=== PATIENT | male | born 1995 | race Hispanic/Latino ===

== ENCOUNTER 2025-10-02 22:17 | Emergency (ER) | payer BC, OTHER ==
[~2025-10-02] VITALS: Ht 167.6 cm; Wt 104.3 kg
[~2025-10-02 22:17] MED LIST: ACET-66 PO; CLIN-141 PO; DESM10SP4 NS; INSU100C14 SQ; INSU100V12 SQ; LEVO500T2 PO
--- NOTE | 2025-10-02 22:47 | EKG ---
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
[2025-10-02 23:00] LABS: IMMATURE GRANULOCYTE ABSOLUTE 0.08 K/uL (0-1); NUCLEATED RED BLOOD CELLS 0.0 % (0.0-0.19); PLATELET COUNT (AUTO) 451 K/uL (130-400); RED BLOOD CELL COUNT(AUTO) 4.19 MIL/uL (4.50-6.20); RED CELL DISTRIBUTION WIDTH 15.4 % (11.0-15.5); WHITE BLOOD COUNT (AUTO) 12.3 K/uL (4.8-10.8)
[2025-10-02 23:09] LABS: CREATININE 2.0 mg/dL (0.5-1.3); GLOMERULAR FILTR. RATE CALC 46.0 mL/min (>90); GLUCOSE,RANDOM 54.0 mg/dL (70-105); SODIUM SERUM 142.0 mmol/L (136-145); UREA NITROGEN, BLOOD 10.0 mg/dL (7-18)
[2025-10-02] MEDS: 0.9%NACL 1000ML 1,000 ML IV ONE (23:10)
[2025-10-02 23:22] LABS: ASPARTATE AMINOTRANSFERASE 34.0 U/L (10-37); TOTAL PROTEIN, SERUM 6.1 g/dL (6.0-8.3)
[2025-10-02] MEDS: DEXTROSE 50%-WATER 50 ML DISP.SYRIN IV ONE ×2 (23:30)
[2025-10-02 23:35] LABS: APPEARANCE,URINE CLEAR (CLEAR); GLUCOSE, URINE (UA) TRACE mg/dL (NEGATIVE); LEUKOCYTE ESTERASE ,URINE NEGATIVE Leu/uL (NEGATIVE); NITRATE,URINE NEGATIVE (NEGATIVE); OCCULT BLOOD,URINE MODERATE (NEGATIVE)
[2025-10-02 23:38] LABS: ADD UA MICROSCOPIC YES
[2025-10-02 23:42] LABS: AMPHET/METH SCREEN,URINE NEGATIVE (NEGATIVE); BARBITURATE SCREEN, URINE NEGATIVE (NEGATIVE); CANNABINOID SCREEN,URINE NEGATIVE (NEGATIVE); COCAINE SCREEN,URINE NEGATIVE (NEGATIVE)
[2025-10-02 23:48] LABS: COVID19 (SARS ANTIGEN RAPID) PRESUMPTIVE NEGATIVE (NEGATIVE); INFLUENZA TYPE A Negative For Type A (NEGATIVE); INFLUENZA TYPE B Negative For Type B (NEGATIVE)
[2025-10-03 00:02] LABS: CREATINE KINASE, TOTAL 450.0 U/L (21-232)
--- NOTE | 2025-10-03 00:11 | HMCIMG ---
EXAM: CR Chest, 1 view CLINICAL HISTORY: Cough. COMPARISON: None provided. FINDINGS: The lungs show no infiltrates or other acute findings. No pleural effusion or pneumothorax. The cardiomediastinal silhouette is within normal limits. No acute osseous abnormality. IMPRESSION: No acute cardiopulmonary process is evident. /[place]
--- NOTE | 2025-10-03 00:55 | ERN ---
ED Note History of Present Illness Stated Complaint: FEVER, ABD PAIN, N/V, HEADACHE Chief Complaint: Multiple Complaints Time Seen by MD: 22:21 Time Seen by Midlevel: 22:21 Dictation: The patient is a 29-year-old male with a history of diabetes, hypertension who presents to the emergency department with multiple complaints. Patient reports that two days ago he started with nausea and nonbloody vomiting. Reports upper abdominal pain. Patient also reports that he started with a headache a week ago. Reports blurry vision. Denies any diarrhea, constipation Allergies: Coded Allergies: No Known Allergies (Unverified Allergy, Unknown, 06/19/15) Home Meds Active Scripts Acetaminophen (Tylenol) 500 Mg Tab, 500 MG PO Q4PRN PRN for PAIN, #30 TAB Prov:WEN ROCHAP 09/04/22 Clindamycin HCl (Clindamycin HCl) 300 Mg Capsule, 1 CAP PO QID for 10 Days, #40 CAP 0 Refills Prov:WEN ROCHAP 09/04/22 Levofloxacin (Levaquin) 500 Mg Tablet, 500 MG PO DAILY, #14 TAB Prov:KAYE BROWN MD 06/30/15 Reported Medications Desmopressin (Nonrefrigerated) (Ddavp 0.01% Nasal [place]) 10 Mcg/0.1 Ml [place].pump, 10 MCG NS BID 06/19/15 Insulin Detemir (Levemir) 100 Unit/1 Ml Vial, 50 UNIT SQ HS, VIAL 06/19/15 Insulin Lispro (Humalog) 100 Unit/1 Ml Cartridge, 19 UNITS SQ TIDAC, CARTRIDGE 06/19/15 Past Medical History Past Medical History: Diabetes-Type II, High Cholesterol, Hypertension Surgical History: None RN Note Reviewed/Agreed w/PFSH: Yes Review of System Dictation Constitutional: Negative for fever,chills, and weight loss Eyes: Negative for injury, pain,redness, and discharge ENT: Negative for injury,pain or swelling Cardiovascular: Negative for chest pain, palpitations, and edema Respiratory: Negative for shortness of breath, cough, and wheezing, Abdomen/GI: Negative for diarrhea, and constipation positive for nausea and vomiting and abdominal pain Back: Negative for injury and pain : Negative for injury, bleeding and discharge MS/Extremity: Negative for injury and deformity Skin: Negative for rash, and discoloration Neuro: Negative for weakness, numbness, tingling, and seizure positive for headache and blurry vision Psych: Negative for suicide ideation, homicidal ideation, and hallucinations Initial Vital Sign VS Vital Signs Date Time Temp Pulse Resp B/P (MAP) Pulse Ox O2 Delivery O2 Flow Rate FiO2 10/02/25 22:20 97.2 97 20 194/113 97 Room Air 10/02/25 22:54 0 21 Physical Exam Dictation Vital Signs reviewed General Appearance: Alert, oriented x 3, no acute distress, well developed, nourished. Head and Face: non-traumatic. Eyes: PERRL, pink conjunctivas, eyelid no trauma, anterior chamber with arcus senilis. Ears: Pinnas intact and no signs of trauma or erythema ear canals clear and no discharge TM no erythema Nose: No discharge, no bleeding. Oropharynx: Mouth normal, tongue pink. pharynx clear,no erythema, tonsils no exudates, no abscesses noted, mucous membrane moist Neck: Supple, non-tender, no thyromegaly, no masses, no JVD, no bruits Breast:Deferred Chest:No tenderness, no crepitus, no paradoxical movement, no retractions Lungs:Clear, well-ventilated, symmetric, no rales, no wheezing, no rhonchi, no stridor, good breath sounds bilaterally Heart: Regular rate, regular rhythm, no murmur, no gallops Vascular: no peripheral edema, Abdomen: Soft, positive bowel sounds, nondistended, no guarding, Upper abdominal tenderness no rebound, no masses no hepatomegaly, no splenomegaly, no Sharpe's sign, no hernias. Rectal: Deferred Genital: Deferred Neurological: Normal speech, motor function intact, sensory function intact , upper extremities equal in strength, lower extremities equal in strength, no facial droop Musculoskeletal: Neck nontender, full range of motion, back nontender, full range of motion, Extremities: nontender, full range of motion Skin: Color pink, dry, no turgor, no rash, no lacerations, no abrasions, no contusions. Lymphatic: Deferred Results (Laboratory/Radiology) Laboratory/Radiology Laboratory Tests Test 10/02/25 22:45 10/02/25 22:55 10/03/25 00:34 White Blood Count 12.3 K/uL (4.8-10.8) H Red Blood Count 4.19 MIL/uL (4.50-6.20) L Hemoglobin 11.3 g/dL (14.0-18.0) L Hematocrit 35.2 % (42-54) L Mean Corpuscular Volume 84.0 fL (79-99) Mean Corpuscular Hemoglobin 27.0 pg (27.0-33.0) Mean Corpuscular Hemoglobin Concent 32.1 g/dL (32.0-36.0) Red Cell Distribution Width 15.4 % (11.0-15.5) Platelet Count 451 K/uL (130-400) H Mean Platelet Volume 10.2 fL (7.5-10.5) Immature Granulocyte % (Auto) 0.7 % (0-1) Neutrophils (%) (Auto) 77.2 % (40.0-77.0) H Lymphocytes (%) (Auto) 14.3 % (21.0-51.0) L Monocytes (%) (Auto) 6.5 % (3.0-13.0) Eosinophils (%) (Auto) 0.7 % (0.0-8.0) Basophils (%) (Auto) 0.6 % (0.0-5.0) Neutrophils # (Auto) 9.5 K/uL (1.8-7.7) H Lymphocytes # (Auto) 1.8 K/uL (1.0-4.8) Monocytes # (Auto) 0.8 K/uL (0.1-1.0) Eosinophils # (Auto) 0.08 K/uL (0.00-0.70) Basophils # (Auto) 0.07 K/uL (0.00-0.20) Absolute Immature Granulocyte (auto 0.08 K/uL (0-1) Nucleated Red Blood Cells 0.0 % (0.0-0.19) Sodium Level 142 mmol/L (136-145) Potassium Level 3.7 mmol/L (3.5-5.1) Chloride Level 109 mmol/L (101-111) Carbon Dioxide Level 26 mmol/L (21-32) Blood Urea Nitrogen 10 mg/dL (7-18) Creatinine 2.0 mg/dL (0.5-1.3) H Glomerular Filtration Rate Calc 46 mL/min (>90) Random Glucose 54 mg/dL (70-105) L Total Calcium 7.9 mg/dL (8.5-10.1) L Total Bilirubin 0.1 mg/dL (0.2-1.0) L Direct Bilirubin 0.1 mg/dL (0.0-0.3) Aspartate Amino Transf (AST/SGOT) 34 U/L (10-37) Alanine Aminotransferase (ALT/SGPT) 31 U/L (12-78) Alkaline Phosphatase 46 U/L (50-136) L Total Creatine Kinase 450 U/L (21-232) *H Troponin I High Sensitivity 12 ng/L (4-75) Total Protein 6.1 g/dL (6.0-8.3) Albumin 1.8 g/dL (3.5-5.0) L Lipase 10 U/L (16-77) L Urine Color LIGHT-YELLOW (YELLOW) Urine Appearance CLEAR (CLEAR) Urine pH 6.5 (5.0-8.0) Urine Specific [place] 1.027 (1.001-1.031) Urine Protein 300 mg/dL (NEGATIVE) H Urine Glucose (UA) TRACE mg/dL (NEGATIVE) H Urine Ketones NEGATIVE mg/dL (NEGATIVE) Urine Occult Blood MODERATE (NEGATIVE) H Urine Nitrate NEGATIVE (NEGATIVE) Urine Bilirubin NEGATIVE mg/dL (NEGATIVE) Urine Urobilinogen 0.2 mg/dL (0.2-1.0) Urine Leukocyte Esterase NEGATIVE [place]/uL Urine RBC 6-10 /HPF (0-1) H Urine WBC 11-25 /HPF (0-1) H Urine Bacteria None /HPF (None Seen) Urine Opiates Screen NEGATIVE (NEGATIVE) Urine Barbiturates Screen NEGATIVE (NEGATIVE) Urine Phencyclidine Screen NEGATIVE (NEGATIVE) Urine Amphetamines Screen NEGATIVE (NEGATIVE) Urine Benzodiazepines Screen NEGATIVE (NEGATIVE) Urine Cocaine Screen NEGATIVE (NEGATIVE) Urine Marijuana (THC) Screen NEGATIVE (NEGATIVE) Influenza Type A Antigen Negative For Type A Influenza Type B Antigen Negative For Type B SARS-CoV-2 Antigen (Rapid) PRESUMPTIVE NEGATIVE Whole Blood Glucose 75 MG/DL (70-110) Labs Reviewed?: Yes EKG: (+) rhythm (Sinus rhythm) EKG Comment: Date:10/02/2025 Time:2244 Ventricular rate:89 MA interval:144 QRS duration:92 QT/QTc:348/425 EKG interpretation: Sinus rhythm Reviewed by ED Attending no STEMI X-RAY Comment: [facility] [address] [place] [address] IMAGING REPORT Signed PATIENT: DARA OCAMPO MR#: [id number] : 1995 SEX: M AGE: 29 LOCATION: [facility] ORDER 37 STATUS: REG ER REPORT#: [id number] SERVICE 34 REASON: cough ORDERING PHYSICIAN: ANGELI PATIÑO ASSOCIATE MERCHANDISE PLANNER PROCEDURE: CXR1VW - CHEST 1VW EXAM: CR Chest, 1 view CLINICAL HISTORY: Cough. COMPARISON: None provided. FINDINGS: The lungs show no infiltrates or other acute findings. No pleural effusion or pneumothorax. The cardiomediastinal silhouette is within normal limits. No acute osseous abnormality. IMPRESSION: No acute cardiopulmonary process is evident. /[place] DICTATED BY: HAYLEE GRAJEDA Jr., MD DATE: 10/03/25109 ELECTRONICALLY SIGNED BY: HAYLEE GRAJEDA Jr., MD DATE: 10/03/25109 CT Scan Comment: IMAGING REPORT Signed PATIENT: DARA OCAMPO MR#: [id number] : 1995 SEX: M AGE: 29 LOCATION: [facility] ORDER STATUS: REG ER [facility] REPORT#: [id number] SERVICE REASON: ABD PAIN ORDERING PHYSICIAN: ANGELI PATIÑO ASSOCIATE MERCHANDISE PLANNER PROCEDURE: ABD PEL WO - CT ABDOMEN/PELVIS W/O CONTRAST EXAM: CT Abdomen and Pelvis Without IV contrast CLINICAL HISTORY: Patient presents with abdominal pain. TECHNIQUE: Axial computed tomography images of the abdomen and pelvis were acquired without intravenous contrast. CONTRAST: No IV contrast. COMPARISON: 06/21/2015. FINDINGS: LUNG BASES: Interval development of small bilateral pleural effusions with adjacent dependent atelectasis. Included lung kohler reveal patchy consolidations in the right middle lobe and bilateral lower lobes, with a few centrilobular nodules showing a tree-in-bud pattern in the lingula. LIVER: Mild hepatomegaly. GALLBLADDER AND BILE DUCTS: Gallbladder within normal limits. No biliary ductal dilatation. PANCREAS: Moderate fatty replacement of the pancreas. No peripancreatic collection. Complete interval resolution of the previously demonstrated pancreatic abscess. SPLEEN: Normal size and attenuation. ADRENAL GLANDS: Normal. KIDNEYS, URETERS, AND BLADDER: Kidneys of preserved morphology without hydronephrosis or calculus. Mild bilateral perinephric fat stranding and haziness. The urinary bladder is suboptimally distended with mild circumferential wall thickening. STOMACH AND BOWEL: Unremarkable. No bowel obstruction. APPENDIX: Normal caliber. PERITONEUM: No free fluid or pneumoperitoneum. LYMPH NODES: No pathologically enlarged lymph nodes. REPRODUCTIVE: Unremarkable as visualized. VASCULATURE: Abdominal aorta of normal caliber. Left pelvic phlebolith. BONES: No acute or aggressive osseous abnormality. IMPRESSION: Interval new mild bilateral perinephric fat stranding, possibly reflecting early pyelonephritis. Clinical correlation with laboratory parameters is recommended. Diffuse fatty replacement of the pancreas. Mild hepatomegaly. Interval new small bilateral pleural effusions with adjacent atelectasis and associated patchy pulmonary consolidations with tree-in-bud nodules, favoring infective bronchiolitis or bronchopneumonia. Recommend contrast-enhanced CT abdomenpelvis and dedicated CT chest for further evaluation, based on clinical correlation. /[place] DICTATED BY: HAYLEE GRAJEDA Jr., MD DATE: 10/03/25236 ELECTRONICALLY SIGNED BY: HAYLEE GRAJEDA Jr., MD DATE: 10/03/25236 IMAGING REPORT Signed PATIENT: DARA OCAMPO MR#: [id number] : 1995 SEX: M AGE: 29 LOCATION: [facility] ORDER STATUS: [facility] REPORT#: [id number] SERVICE REASON: headache, blurry vision ORDERING PHYSICIAN: ANGELI PATIÑO PROCEDURE: HEAD WO - CT HEAD/BRAIN W/O CONTRAST EXAM: CT Head Without IV contrast. CLINICAL HISTORY: Headache, blurry vision. TECHNIQUE: Axial computed tomography images of the head/brain without intravenous contrast. Sagittal and coronal reconstructions are available and reviewed. A CT scan is done according to ALARA (As Low As Reasonably Achievable). COMPARISON: None provided. FINDINGS: BRAIN: No evidence of acute hemorrhage. No mass lesion. No CT evidence for acute territorial infarct. No midline shift or extra-axial collections. VENTRICLES: No hydrocephalus. ORBITS: The orbits are unremarkable. SINUSES AND MASTOIDS: A 2 cm retention cyst versus a polyp in the right maxillary sinus. The rest of the paranasal sinuses and mastoid air cells are clear. BONES: No fracture. SOFT TISSUES: Unremarkable. IMPRESSION: No acute intracranial abnormality. /[place] DICTATED BY: HAYLEE GRAJEDA Jr., MD DATE: 10/03/25223 ELECTRONICALLY SIGNED BY: HAYLEE GRAJEDA Jr., MD DATE: 10/03/25223 ED Course ED Course Orders Procedure Category Date Status Time Cbc With Differential LAB 10/02/25 Complete 22:35 Troponin I High LAB 10/02/25 Complete Sensitivity 22:35 Urinalysis Profile LAB 10/02/25 Complete 22:35 12 Lead Ekg Tracing- EKG 10/02/25 Complete Technical 22:35 0.9%Nacl 1000ml (Ns PHA 10/02/25 Complete 1000ml) 23:00 Ondansetron 4mg Inj PHA 10/02/25 Complete (Zofran 4mg Inj) 23:00 Pantoprazole 40mg Inj PHA 10/02/25 Complete (Protonix 40mg Inj 23:00 Creatine Kinase, Total LAB 10/02/25 Complete 22:35 Chest 1vw RAD 10/02/25 Resulted 22:35 Lipase LAB 10/02/25 Complete 22:35 Basic Metabolic Panel LAB 10/02/25 Complete 22:35 Hepatic Function Panel LAB 10/02/25 Complete 22:35 Drug Screen Urine LAB 10/02/25 Complete 22:35 Covid19 (Sars Antigen LAB 10/02/25 Complete Rapid) 22:35 Influenza Type A & B, LAB 10/02/25 Complete Rapid 22:35 Hydralazine 20mg Inj PHA 10/02/25 Complete (Apresoline 20mg In 23:00 Acetaminophen 500mg PHA 10/02/25 Complete Tab (Tylenol 500mg T 23:00 Dextrose 50%-Water PHA 10/02/25 Complete (D50w) 23:23 Dextrose 50%-Water PHA 10/02/25 Complete (D50w) 23:30 Culture Urine NEGIN 10/02/25 In Process 23:41 Ct Head/Brain W/O CT 10/03/25 Resulted Contrast 00:08 Ct Abdomen/Pelvis W/O CT 10/03/25 Resulted Contrast 00:08 Bedside Glucose CPOE 10/03/25 Transmitted Fingerstick 00:10 Labetalol 20mg Syg PHA 10/03/25 Complete (Trandate 20mg Syg) 01:00 Promethazine Hcl PHA 10/03/25 Complete (Phenergan) 01:00 Current Medications Medications (Trade) Dose Ordered Sig/Joshua Route PRN Reason Start Time Stop Time Status Last Admin Dose Admin Acetaminophen (TYLenol 500MG TAB) 1,000 mg ONCE ONCE PO 10/02/25 23:00 10/02/25 23:01 DC 10/02/25 23:10 Dextrose (D50w) 50 ml ONCE ONCE IV 10/02/25 23:30 10/02/25 23:31 DC 10/02/25 23:30 Dextrose (D50w) 50 ml STK-MED ONCE IV 10/02/25 23:23 10/02/25 23:23 DC Hydralazine HCl (APRESOLine 20MG INJ) 10 mg ONCE ONCE IV 10/02/25 23:00 10/02/25 23:01 DC 10/02/25 23:10 Labetalol HCl (TRANdate 20MG SYG) 10 mg ONCE ONCE IV 10/03/25 01:00 10/03/25 01:01 DC 10/03/25 01:11 Ondansetron HCl (zoFRAN 4MG INJ) 4 mg ONCE ONCE IVP 10/02/25 23:00 10/02/25 23:01 DC 10/02/25 23:09 Pantoprazole Sodium (PROTonix 40MG INJ) 40 mg ONCE ONCE IVP 10/02/25 23:00 10/02/25 23:01 DC 10/02/25 23:09 Promethazine HCl (Phenergan) 12.5 mg ONCE ONCE IM 10/03/25 01:00 10/03/25 01:01 DC 10/03/25 01:10 Sodium Chloride 1,000 ml @ 0 mls/hr ONCE ONCE IV 10/02/25 23:00 10/02/25 23:01 DC 10/02/25 23:10 Vital Signs Date Time Temp Pulse Resp B/P (MAP) Pulse Ox O2 Delivery O2 Flow Rate FiO2 10/03/25 01:22 98.6 84 19 165/97 97 Room Air* 0 21 10/03/25 01:11 178/102 10/02/25 23:45 98.1 97 20 176/94 99 Room Air* 0 21 10/02/25 23:10 182/102 10/02/25 22:54 97.9 96 18 186/102 98 Room Air* 0 21 10/02/25 22:20 97.2 97 20 194/113 97 Room Air Medical Decision Making MDM The patient is a 29-year-old male with a history of diabetes, hypertension who presents to the emergency department with multiple complaints. Patient reports that two days ago he started with nausea and nonbloody vomiting. Reports upper abdominal pain. Patient also reports that he started with a headache a week ago. Reports blurry vision. Denies any diarrhea, constipation. Patient was evaluated with multiple imaging studies consistent of CT of the head CT of the abdomen. CT of the abdomen did disclose early pyelonephritis white blood cell count mildly elevated. Patient did receive IV antibiotics. We will be discharged in stable condition for ongoing management at home. I did advise him appropriate follow up with the PCP diet modification and continue to take the medications prescribed in the ER. Throughout ER visit patient has been stable patient was hydrated with IV fluids states he feels much better. DX & DISP Disposition: Discharge Departure Impression: Primary Impression: Pyelonephritis Condition: Stable Scripts Levofloxacin (Levaquin 750Mg Tabs) 750 Mg Tablet 500 MG PO DAILY for 5 Days, #5 TAB Prov: JL NUNEZ MD 10/03/25 Additional Instructions: FOLLOW-UP WITH PRIMARY CARE PROVIDER IN 1 TO 2 DAYS. TAKE MEDICATIONS DIRECTED HERE IN THE EMERGENCY ROOM. OKAY TO CONTINUE HOME MEDICATIONS UNLESS OTHERWISE DISCUSSED DURING YOUR VISIT IN THE EMERGENCY ROOM TODAY. RETURN TO YOUR NEAREST EMERGENCY ROOM IF SYMPTOMS WORSEN OR IF THERE IS NO IMPROVEMENT. CALL 911 IF YOU NEED IMMEDIATE ASSISTANCE. TAKE TYLENOL [id number] NEEDED AND IF NO CONTRAINDICATIONS ARE PRESENT. INCREASE ORAL HYDRATION. A WOUND CULTURE OR URINE CULTURE WAS ORDERED HERE IN THE EMERGENCY ROOM DEPARTMENT PLEASE FOLLOW-UP WITH PRIMARY CARE PROVIDER AND ADVISE THEM TO GET REPORTS FROM OUR FACILITY. IF YOU HAD ANY ELI WRAP/SPLINTS THAT WERE APPLIED HERE, PLEASE DO NOT REMOVE THEM UNTIL YOU SEE YOUR PRIMARY CARE OR SPECIALTY. Referrals: Referrals: MADAI ESPARZA MD (PCP) Time of Disposition: 02:01 ANGELI PATIÑO Oct 03, 2025 00:55 JL NUNEZ MD Oct 03, 2025 01:58
[2025-10-03] MEDS: PROMETHAZINE HCL 25 MG/ML 1ML AMPULE IM ONE (01:10)
[2025-10-03 01:22] VITALS: BP 165/97; PULSE 84; RESP 19; TEMP 98.6; O2SAT 97
--- NOTE | 2025-10-03 01:24 | HMCIMG ---
EXAM: CT Head Without IV contrast. CLINICAL HISTORY: Headache, blurry vision. TECHNIQUE: Axial computed tomography images of the head/brain without intravenous contrast. Sagittal and coronal reconstructions are available and reviewed. A CT scan is done according to ALARA (As Low As Reasonably Achievable). COMPARISON: None provided. FINDINGS: BRAIN: No evidence of acute hemorrhage. No mass lesion. No CT evidence for acute territorial infarct. No midline shift or extra-axial collections. VENTRICLES: No hydrocephalus. ORBITS: The orbits are unremarkable. SINUSES AND MASTOIDS: A 2 cm retention cyst versus a polyp in the right maxillary sinus. The rest of the paranasal sinuses and mastoid air cells are clear. BONES: No fracture. SOFT TISSUES: Unremarkable. IMPRESSION: No acute intracranial abnormality. /[place]
--- NOTE | 2025-10-03 01:39 | HMCIMG ---
EXAM: CT Abdomen and Pelvis Without IV contrast CLINICAL HISTORY: Patient presents with abdominal pain. TECHNIQUE: Axial computed tomography images of the abdomen and pelvis were acquired without intravenous contrast. CONTRAST: No IV contrast. COMPARISON: 06/21/2015. FINDINGS: LUNG BASES: Interval development of small bilateral pleural effusions with adjacent dependent atelectasis. Included lung kohler reveal patchy consolidations in the right middle lobe and bilateral lower lobes, with a few centrilobular nodules showing a tree-in-bud pattern in the lingula. LIVER: Mild hepatomegaly. GALLBLADDER AND BILE DUCTS: Gallbladder within normal limits. No biliary ductal dilatation. PANCREAS: Moderate fatty replacement of the pancreas. No peripancreatic collection. Complete interval resolution of the previously demonstrated pancreatic abscess. SPLEEN: Normal size and attenuation. ADRENAL GLANDS: Normal. KIDNEYS, URETERS, AND BLADDER: Kidneys of preserved morphology without hydronephrosis or calculus. Mild bilateral perinephric fat stranding and haziness. The urinary bladder is suboptimally distended with mild circumferential wall thickening. STOMACH AND BOWEL: Unremarkable. No bowel obstruction. APPENDIX: Normal caliber. PERITONEUM: No free fluid or pneumoperitoneum. LYMPH NODES: No pathologically enlarged lymph nodes. REPRODUCTIVE: Unremarkable as visualized. VASCULATURE: Abdominal aorta of normal caliber. Left pelvic phlebolith. BONES: No acute or aggressive osseous abnormality. IMPRESSION: Interval new mild bilateral perinephric fat stranding, possibly reflecting early pyelonephritis. Clinical correlation with laboratory parameters is recommended. Diffuse fatty replacement of the pancreas. Mild hepatomegaly. Interval new small bilateral pleural effusions with adjacent atelectasis and associated patchy pulmonary consolidations with tree-in-bud nodules, favoring infective bronchiolitis or bronchopneumonia. Recommend contrast-enhanced CT abdomenpelvis and dedicated CT chest for further evaluation, based on clinical correlation. /[place]
[2025-10-03] MEDS ORDERED: LEVO750T68 PO (02:02)
== END 2025-10-03 02:11 | disposition home or self-care (01) ==
LOC: EDH 22:17
DX: E11.9 Type 2 diabetes mellitus without complications (principal); E78.00 Pure hypercholesterolemia, unspecified; I10 Essential (primary) hypertension; Z20.822 Contact with and (suspected) exposure to COVID-19; Z79.4 Long term (current) use of insulin; Z79.899 Other long term (current) drug therapy; N12 Tubulo-interstitial nephritis, not specified as acute or chronic
CPT/HCPCS: 99285; 96374; 96375 ×2; 71045; 87426; 82550; 80076; 84484; 80048; 80305; 83690; 85025; 87086; 87804 ×2; 82948; 36415; 93005; 81001; 70450; 74176; 96372; J7030; J7070; J0360; J2405; J2470; J2550